=== PATIENT | female | born 1965 | race African-American/Black ===

== ENCOUNTER 2020-02-17 21:26 | Emergency (ER) | payer OTHER ==
--- NOTE | 2020-02-17 23:01 | ER Document Report ---
ED Medical Screen (RME) - General Chief Complaint: Laceration Stated Complaint: FINGER LACERATION Primary Care Provider: YULI KAUFMAN [Primary Care Provider] - Follow up as needed Notes: Patient is a 55-year-old -[place] female with no significant past medical history presents the emergency department the chief complaint of laceration to the right index finger and left thumb that occurred around 7:30 PM. She states that renovating a house and she was cutting with a knife and accidentally sliced the left thumb. States the right finger is not as bad. Cannot get the left thumb to stop bleeding. Admits her tetanus was updated last year. Denies any numbness tingling or weakness. I have treated and performed a rapid initial assessment of this patient. A comprehensive ED assessment and evaluation of the patient, analysis of test results and completion of medical decision making process will be conducted by additional ED providers. PHYSICAL EXAMINATION: GENERAL: Well-appearing, well-nourished and in no acute distress. A&Ox4. Answers questions appropriately. - Related Data Allergies/Adverse Reactions: No Known Allergies Allergy (Verified 02/17/20 22:52) Past Medical History - Social History Chew tobacco use (# tins/day): No Frequency of alcohol use: None Drug Abuse: None Physical Exam - Vital signs Vitals: Temp Pulse Resp BP Pulse Ox 98.6 F 55 L 17 176/86 H 100 02/17/20 21:32 02/17/20 21:32 02/17/20 21:32 02/17/20 21:32 02/17/20 21:32 Course - Vital Signs Vital signs: Temp Pulse Resp BP Pulse Ox 98.6 F 55 L 17 176/86 H 100 02/17/20 22:52 02/17/20 21:32 02/17/20 21:32 02/17/20 21:32 02/17/20 21:32 Doctor's Discharge - Discharge Referrals: YULI KAUFMAN [Primary Care Provider] - Follow up as needed
[2020-02-18] MEDS ORDERED: LIDOCAINE 1%/EPINEPHRINE INJ 20 ML VIAL INJ ONE (00:48)
--- NOTE | 2020-02-18 00:49 | ER Document Report ---
ED Wound - General Chief Complaint: Laceration Stated Complaint: FINGER LACERATION Time Seen by Provider: 02/18/20 00:42 Notes: Patient is a 55-year-old female who comes emergency department for chief complaint of laceration to the left thumb. She also has a small laceration on the right index finger. Injuries occurred around 7:30 PM, she states that she has been renovating her house and she was trying to perform opening/cutting with a knife when she slipped and accidentally caused the injuries. She is up-to-date on her tetanus within 1 year. She takes aspirin but no other blood thinners. She states she has diet-controlled diabetes. She denies any other injuries or any other complaints. - Related Data Allergies/Adverse Reactions: acetaminophen [From Percocet] Adverse Reaction (Verified 02/18/20 00:55) oxycodone [From Percocet] Adverse Reaction (Verified 02/18/20 00:55) Past Medical History - General Information source: Patient - Social History Smoking Status: Never Smoker Chew tobacco use (# tins/day): No Frequency of alcohol use: None Drug Abuse: None Lives with: Family Family History: Reviewed & Not Pertinent - Past Medical History Cardiac Medical History: Reports: Hx Hypertension - Immunizations Immunizations up to date: Yes Hx Diphtheria, Pertussis, Tetanus Vaccination: Yes Review of Systems - Review of Systems Constitutional: No symptoms reported EENT: No symptoms reported Cardiovascular: No symptoms reported Respiratory: No symptoms reported Gastrointestinal: No symptoms reported Genitourinary: No symptoms reported Female Genitourinary: No symptoms reported Musculoskeletal: See HPI Skin: See HPI Hematologic/Lymphatic: No symptoms reported Neurological/Psychological: No symptoms reported Physical Exam - Vital signs Vitals: Temp Pulse Resp BP Pulse Ox 98.6 F 55 L 17 176/86 H 100 02/17/20 21:32 02/17/20 21:32 02/17/20 21:32 02/17/20 21:32 02/17/20 21:32 - Notes Notes: GENERAL: Alert, interacts well. No acute distress. HEAD: Normocephalic, atraumatic. EYES: Pupils equal, round, and reactive to light. Extraocular movements intact. ENT: Oral mucosa moist, tongue midline. Oropharynx unremarkable. Airway patent. NECK: Full range of motion. Supple. Trachea midline. No lymphadenopathy. LUNGS: Clear to auscultation bilaterally, no wheezes, rales, or rhonchi. No respiratory distress. Non-tender chest wall. HEART: Regular rate and rhythm. No murmur EXTREMITIES: There is a small abrasion over the dorsal aspect of the mid right index finger, no wounds that need repair. The left thumb has a 1.5 cm V-shaped partial-thickness laceration at the base of the thumb over the palmar aspect. Full range of motion of all fingers, normal strength in flexion and extension against resistance, normal capillary refill and sensation. Wound was easily explored and there is no evidence of tendon, nerve, or large vessel injury. BACK: no cervical, thoracic, lumbar midline tenderness. No saddle anesthesia, normal distal neurovascular exam. Moves all extremities in full range of motion. NEUROLOGICAL: Alert and oriented x3. Normal speech. Cranial nerves II through XII grossly intact. Strength 5/5 in all extremities. PSYCH: Normal affect, normal mood. SKIN: Warm, dry, normal turgor. No rashes or lesions noted. Course - Re-evaluation Re-evalutation: Easily explored partial-thickness wound without any concerning findings or signs of concerning injury. Right index finger was cleaned and dressed, left thumb was sutured, discussed care, follow-up, return precautions. Patient states understanding and agreement. - Vital Signs Vital signs: Temp Pulse Resp BP Pulse Ox 97.7 F 58 L 16 175/75 H 97 02/18/20 02:12 02/18/20 02:10 02/18/20 02:10 02/18/20 02:10 02/18/20 02:10 Procedures - Laceration/Wound Repair Left thumb Wound length (cm): 1.5 Wound's Depth, Shape: Irregular Anesthetic type: 1% Lidocaine w/epi Volume Anesthetic (mLs): 3 Wound explored: Clean, No foreign body removed Irrigated w/ Saline (mLs): 50 Wound Repaired With: Sutures Suture Size/Type: 5:0, Ethilon Number of Sutures: 3 Layer Closure?: No Post-procedure wound care: Sterile dressing applied Post-procedure NV exam normal: Yes Complications: No Discharge - Discharge Clinical Impression: Laceration of left hand Qualifiers: Encounter type: initial encounter Foreign body presence: without foreign body Qualified Code(s): S61.412A - Laceration without foreign body of left hand, initial encounter Condition: Stable Disposition: HOME, SELF-CARE Additional Instructions: The wound was repaired with sutures. Keep clean, clean with soap and water, dab dry, avoid soaking or scrubbing. You can apply thin film of topical antibiotic. Sutures need to be removed in 5-7 days at a medical facility. Return sooner for any concerning symptoms including signs of infection such as developing pain, swelling, redness, discolored discharge, fever, or any other concerning symptoms. Forms: Elevated Blood Pressure
[2020-02-18 02:19] VITALS: BP 175/75
== END 2020-02-18 02:12 | disposition home or self-care (01) ==
LOC: ER 21:26
PROC: 0HQGXZZ Repair Left Hand Skin, External Approach (ICD-10-PCS; principal; 2020-02-17)
DX: S61.012A Laceration without foreign body of left thumb without damage to nail, initial encounter (principal); S61.210A Laceration without foreign body of right index finger without damage to nail, initial encounter; W26.0XXA Contact with knife, initial encounter; Z79.82 Long term (current) use of aspirin; Z88.8 Allergy status to other drugs, medicaments and biological substances; I10 Essential (primary) hypertension
CPT/HCPCS: 99282; 12001; J3490